=== PATIENT | female | born 1955 | race Native Hawaiian/Other Pacific Islander ===

== ENCOUNTER 2017-07-04 09:11 | Outpatient (CLI) | payer BC | END 2017-07-04 19:51 | disposition home or self-care (01) | LOC: MRI 09:11 | DX: M48.06 Spinal stenosis, lumbar region (principal) ==

== ENCOUNTER 2017-07-13 11:08 | Outpatient (CLI) | payer BC ==
[2017-07-13 11:48] LABS: PLATELET COUNT 200 K/uL (152-353)
[2017-07-13 11:55] LABS: POTASSIUM 4.2 mmol/L (3.6-5.2); SODIUM 139 mmol/L (136-145)
== END 2017-07-13 19:06 | disposition home or self-care (01) ==
LOC: LABW 11:08 → RESP 11:08 → LABW 19:06
PROVIDERS: Neurological Surgery
DX: M51.26 Other intervertebral disc displacement, lumbar region (principal); Z01.818 Encounter for other preprocedural examination; R79.1 Abnormal coagulation profile
CPT/HCPCS: 36415; 80048; 85027; 85610; 85730